=== PATIENT | male | born 1950 | race Caucasian/White ===

== ENCOUNTER → 2016-06-30 | Day surgery (SDC) | payer BC ==
[~2016-06-30] VITALS: Ht 167.6 cm; Wt 84.4 kg
[~2016-06-30] MED LIST: ASPI81TA85 PO; BACITRACIN OINT 30GM As Ordered ONE; BACITRACIN OINT 30GM TOP ONE; BACT800T5 PO; BACTRIM 160MG/800MG DS TAB PO SCH; BUPIVACAINE HCL 0.25% 10 ML VIAL As Ordered ONE; BUPIVACAINE HCL 0.25% 30 ML VIAL XX ONE; ENAL10TA2 PO; KETOROLAC 60 MG/2 ML VIAL (J1885) As Ordered ONE; LIDOCAINE 2% INJ 100 MG/5 ML SDV (FOR ANES.) As Ordered ONE; LIDOCAINE 2% MDV 20 ML VIAL As Ordered ONE; LIDOCAINE 2% MDV 20 ML VIAL XX ONE; LIPI20TA PO; LR 1,000 ML IV SCH; MEPERIDINE INJ 25 MG/ML VIAL (J2175) IV PRN; METOCLOPRAMIDE INJ 10MG/2ML VIAL (J2765) IV PRN; MIDAZOLAM INJ 2 MG/2 ML VIAL (J2250) As Ordered ONE; ONDANSETRON 4MG/2ML VIAL (J2405) As Ordered ONE; ONDANSETRON 4MG/2ML VIAL (J2405) IV PRN; PERCOCET 5MG/325MG TAB As Ordered ONE; PERCOCET 5MG/325MG TAB PO PRN; PERCOCET PO; PROPOFOL 200 MG/20 ML VIAL As Ordered ONE; dexameTHASONE 4 MG/ML 1ML VIAL (J1100) As Ordered ONE; ePHEDrine SULFATE 25 MG/5 ML(5MG/ML) SYRINGE As Ordered ONE; fentaNYL 100 MCG/2 ML INJECTION (J3010) As Ordered ONE; fentaNYL 100 MCG/2 ML INJECTION (J3010) IV PRN; fentaNYL 250 MCG/5 ML INJECTION (J3010) As Ordered ONE
[2016-06-30] MEDS: PERCOCET 5MG/325MG TAB PO PRN ×2 (11:35→12:02)
[2016-06-30 13:21] VITALS: BP 130/83
--- NOTE | 2016-07-01 11:55 | RO ---
DATE OF PROCEDURE: 06/30/2016 PREOPERATIVE DIAGNOSIS: Right hydrocele. POSTOPERATIVE DIAGNOSES: Right hydrocele and right epididymal cyst. FINDINGS: Right hydrocele of about 500 mL and right epididymal cyst of about 10 cm. PROCEDURE: Right hydrocele repair plus removal of right epididymal cyst. SURGEON: Dr. Patrick Ames. PACKING MACHINE TENDER: None. ANESTHESIA: General. COMPLICATIONS: None. ESTIMATED BLOOD LOSS: N/A. HISTORY OF PRESENT ILLNESS: This is a 66-year-old male patient that has a right hydrocele, very large, symptomatic. For this reason, he has consented for a right hydrocele repair. PROCEDURE DESCRIPTION: With patient under general anesthesia in supine position, after prepping and draping the area of concern which included the entire genitalia and abdomen, we started by doing a transverse incision in the right hemiscrotal sac with a 15 blade knife. We then proceeded with electro Bovie cautery to actually open the wall of the scrotal sac and then did a vertical incision in tunica vaginalis and placed a suction device to suck 500 mL of transparent clear fluid. This was a hydrocele. We then proceeded to open the tunica vaginalis in a longitudinal fashion and then inverted the tunica vaginalis with a #3-0 chromic. We then found a very large cyst in the tail of the epididymis. We dissected the cyst out and was sent for pathology analysis. We then proceeded to secure hemostasis with electro Bovie cautery and then placed local anesthesia in spermatic cord and dropped the testicle inside the scrotal sac and closed the scrotal sac in two layers with running #3-0 chromic in the first layer in the scrotal skin and running #3-0 chromic in second layer. We placed bacitracin cream, fluffs, and scrotal support. PLAN: The patient will go home today with antibiotic and pain medication. Followup at [facility] [place] in about 2 weeks. There were no complications.
== END ==
LOC: M SDC 08:06
PROVIDERS: ATTEND Urology
DX: N43.3 Hydrocele, unspecified (principal); N50.3 Cyst of epididymis; I10 Essential (primary) hypertension; E78.5 Hyperlipidemia, unspecified; G47.33 Obstructive sleep apnea (adult) (pediatric); Z79.899 Other long term (current) drug therapy; Z79.82 Long term (current) use of aspirin; Z87.891 Personal history of nicotine dependence
CPT/HCPCS: 36415; 54840; 55060; 85610; 85730; 88302; 88305; J0690; J1100; J1885; J2250; J2405; J3010

== ENCOUNTER → 2016-10-13 | Outpatient (CLI) | payer BC ==
[~2016-10-13] MED LIST changes: -BACITRACIN OINT 30GM As Ordered ONE; -BACITRACIN OINT 30GM TOP ONE; -BACTRIM 160MG/800MG DS TAB PO SCH; -BUPIVACAINE HCL 0.25% 10 ML VIAL As Ordered ONE; -BUPIVACAINE HCL 0.25% 30 ML VIAL XX ONE; -KETOROLAC 60 MG/2 ML VIAL (J1885) As Ordered ONE; -LIDOCAINE 2% INJ 100 MG/5 ML SDV (FOR ANES.) As Ordered ONE; -LIDOCAINE 2% MDV 20 ML VIAL As Ordered ONE; -LIDOCAINE 2% MDV 20 ML VIAL XX ONE; -LR 1,000 ML IV SCH; -MEPERIDINE INJ 25 MG/ML VIAL (J2175) IV PRN; -METOCLOPRAMIDE INJ 10MG/2ML VIAL (J2765) IV PRN; -MIDAZOLAM INJ 2 MG/2 ML VIAL (J2250) As Ordered ONE; -ONDANSETRON 4MG/2ML VIAL (J2405) As Ordered ONE; -ONDANSETRON 4MG/2ML VIAL (J2405) IV PRN; -PERCOCET 5MG/325MG TAB As Ordered ONE; -PERCOCET 5MG/325MG TAB PO PRN; -PROPOFOL 200 MG/20 ML VIAL As Ordered ONE; -dexameTHASONE 4 MG/ML 1ML VIAL (J1100) As Ordered ONE; -ePHEDrine SULFATE 25 MG/5 ML(5MG/ML) SYRINGE As Ordered ONE; -fentaNYL 100 MCG/2 ML INJECTION (J3010) As Ordered ONE; -fentaNYL 100 MCG/2 ML INJECTION (J3010) IV PRN; -fentaNYL 250 MCG/5 ML INJECTION (J3010) As Ordered ONE
== END ==
LOC: M SMT 08:36
PROVIDERS: ATTEND Nurse Practitioner Women's Health
DX: Z12.5 Encounter for screening for malignant neoplasm of prostate (principal)
CPT/HCPCS: 36415; G0103

== ENCOUNTER → 2017-01-14 | Outpatient (CLI) | payer BC ==
--- NOTE | 2017-01-14 15:41 | REP ---
MULTIPARAMETRIC PROSTATE MRI STUDY WITH PRE- AND POST GADOLINIUM ENHANCED IMAGING TECHNIQUE: TECHNIQUE: Using a phased array surface coil, small field of view imaging was acquired using T2-weighted scans in the axial, coronal, and sagittal imaging planes. Small field of view diffusion-weighted sequences are acquired. Small field of view axial T1-weighted scans are acquired dynamically after the intravenous administration of 17 mL of ProHance. Using a large field of view, the entire pelvis to the level of the aortic bifurcation was imaged using pre-contrast axial T1 and post-contrast axial T1 fat-saturation images. HISTORY: Elevated prostate specific antigen. FINDINGS: There is no MRI evidence of pelvic or inguinal adenopathy. No bone lesion is seen. Prostate dimensions are 6.2 x 5.8 x 5.9 cm for a total volume of 100.8 CC. Nodular T2 high and low signal areas are seen throughout the central gland consistent with benign prostatic hypertrophy. Incidental note is made of a cystic structure posteriorly in the midline with a central low signal focus, measuring approximately 0.8 x 1.6 cm. This is most consistent with a utricle cyst. Seminal vesicles appear symmetrical. There are three areas of abnormal signal intensity which are identified as regions of interest. First in the left apical posterior transitional zone there is a focal rounded low signal area which measures approximately 0.9 x 0.8 x 1.3 cm. There is predominantly type 1 enhancement characteristics within this region. Total volume is 0.59 mL. Overall level of suspicion is 3 out of 5 with clinically significant cancer equivocal. Secondly, in the left mid and apical posterior peripheral zone there is a geographic area of heterogeneous low signal on T2. The area measures approximately 2.6 x 1.1 x 2.3 cm for a total volume of 3.3 CC. There is predominantly type 1 enhancement within this region. Overall level of suspicion is 2 out of 5 with clinically significant cancer unlikely to be present. Finally in the left mid posterior transitional zone there is an oval area of low signal on T2-weighted images which measures 1.9 x 1.1 x 2.0 cm. Total volume is 2.36 CC. There is predominantly type 2 enhancement within this region. Overall level of suspicion is 3 out of 5 with clinically significant cancer equivocal. IMPRESSION: Three focal abnormalities seen in the prostate gland identified as regions of interest in the [employer] software for MR ultrasound fusion utilization. Signed by Sandro Joya MD 01/14/2017 05:27 P
== END ==
LOC: M RAD 09:26
PROVIDERS: ATTEND Urology
DX: R97.20 Elevated prostate specific antigen [PSA] (principal)
CPT/HCPCS: 72197; A9576

== ENCOUNTER → 2017-01-14 | Outpatient (CLI) | payer BC ==
[2017-01-14 10:48] LABS: ANION GAP 9 MEQ/L (8-16); BLOOD UREA NITROGEN 18 MG/DL (7-18); CALCIUM LEVEL 8.3 MG/DL (8.8-10.2); CARBON DIOXIDE LEVEL 25 MEQ/L (21-32); CHLORIDE LEVEL 110 MEQ/L (98-107); GLOMERULAR FILTRATION RATE > 60.0 (>49); GLUCOSE, FASTING 85 MG/DL (80-110); POTASSIUM SERUM 4.6 MEQ/L (3.5-5.1); SODIUM LEVEL 144 MEQ/L (136-145)
== END ==
LOC: M LAB 08:59
PROVIDERS: ATTEND Nurse Practitioner Women's Health
DX: R97.20 Elevated prostate specific antigen [PSA] (principal)

== ENCOUNTER → 2017-02-21 | Outpatient (CLI) | payer BC ==
--- NOTE | 2017-02-21 12:50 | REP ---
Prostate sonography: History: Elevated PSA Sonographic findings: Trans rectal prostate sonography demonstrates unremarkable seminal vesicles. Prostate gland is heterogeneously enlarged with calcifications and cystic changes noted. Glandular dimensions are measured at 6.1 x 5.7 x 6.2 cm with a calculated glandular volume of 113 ml. Transrectal sonographic guidance provided to Dr. Ames who performed trans rectal ultrasound guided needle biopsy procedure . Signed by Mike Her MD 02/21/2017 12:40 P
== END ==
LOC: M SMT PRO 08:46
PROVIDERS: ATTEND Urology
DX: R97.20 Elevated prostate specific antigen [PSA] (principal); N40.1 Benign prostatic hyperplasia with lower urinary tract symptoms
CPT/HCPCS: 76872; 76942; G0416

== ENCOUNTER → 2022-04-14 | Outpatient (CLI) | payer BC ==
[~2022-04-14] MED LIST changes: -ASPI81TA85 PO; +ASPI81TA86 PO; +ENAL-36 PO; -ENAL10TA2 PO; +PROHANCE 279.3MG/ML 15ML VIAL As Ordered ONE
== END ==
LOC: M RAD 12:11
PROVIDERS: ATTEND Nurse Practitioner Women's Health
DX: R97.20 Elevated prostate specific antigen [PSA] (principal); K40.90 Unilateral inguinal hernia, without obstruction or gangrene, not specified as recurrent
CPT/HCPCS: 72197; A9576

== ENCOUNTER → 2022-04-27 | Outpatient (REF) | payer BC ==
[~2022-04-27] MED LIST changes: -PROHANCE 279.3MG/ML 15ML VIAL As Ordered ONE
== END ==
LOC: M SMT 10:11
PROVIDERS: ATTEND Urology
DX: R97.20 Elevated prostate specific antigen [PSA] (principal)

== ENCOUNTER → 2025-04-30 | Outpatient (REF) | payer BC ==
[~2025-04-30] MED LIST changes: -ENAL-36 PO; +ENAL1TAB50 PO
[2025-04-30 18:45] LABS: BASO # 0.0 10^3/uL (0.0-0.2); BASO % 0.2 % (0.0-1.0); EOS # 0.0 10^3/uL (0.0-0.5); EOS % 0.1 % (0.0-3.0); LYMPH # 0.6 10^3/uL (1.5-5.0); LYMPH % 5.5 % (24.0-44.0); MONO # 0.7 10^3/uL (0.0-0.8); MONO % 6.2 % (2.0-8.0); NEUTROPHILS # 9.5 10^3/uL (1.5-8.5); NEUTROPHILS % 87.7 % (36.0-66.0); PLATELET COUNT, AUTOMATED 303 10^3/uL (150-450)
[2025-04-30 19:12] LABS: ALT/SGPT 18.0 U/L (7.0-40); AST/SGOT 15.0 U/L (<34); C REACTIVE PROTEIN QUANTITATIV 1.1 MG/DL (<1.0); CALCIUM LEVEL 8.5 MG/DL (8.3-10.6); CARBON DIOXIDE LEVEL 28.0 MMOL/L (20-31); CHLORIDE LEVEL 107.0 MMOL/L (98-107); CREATININE FOR GFR 0.89 MG/DL (0.70-1.30); GLOMERULAR FILTRATION RATE 88.8 (>42); POTASSIUM SERUM 4.6 MMOL/L (3.5-5.1); SODIUM LEVEL 142.0 MMOL/L (136-145)
[2025-05-07 16:18] LABS: HLA-B27 Positive (Negative)
== END ==
LOC: M SFHCRHEU 14:40
PROVIDERS: ATTEND Internal Medicine Rheumatology
DX: R52 Pain, unspecified (principal)